=== PATIENT | male | born 1970 | race Caucasian/White ===

== ENCOUNTER 2021-07-16 13:39 | Emergency (ER) | payer OTHER ==
[~2021-07-16] VITALS: Ht 188 cm; Wt 99.8 kg
[2021-07-16] MEDS ORDERED: AMLODIPINE BESYL5 MG PO (14:08)
[2021-07-16] MEDS ORDERED: ALLOPURINOL100 MG PO (14:08)
[2021-07-16] MEDS ORDERED: FLUOXETINE HCL10 MG PO (14:08)
[2021-07-16] MEDS ORDERED: SODIUM CHLORIDE 0.9% 1000ML 1,000 ML IV STA (14:16)
[2021-07-16] MEDS ORDERED: LORAZEPAM INJ 2 MG/ML VIAL IV ONE (14:30)
[2021-07-16] MEDS ORDERED: SODIUM CHLORIDE 0.9% 1000ML 1,000 ML ONE (14:35)
[2021-07-16] MEDS ORDERED: LORAZEPAM INJ 2 MG/ML VIAL ONE (14:35)
[2021-07-16] MEDS ORDERED: SODIUM CHLORIDE 0.9% 100 ML ONE (14:35)
[2021-07-16] MEDS ORDERED: CLONAZEPAM0.5 MG PO (16:14)
== END 2021-07-16 16:10 | disposition home or self-care (01) ==
LOC: FSED 13:47
DX: R42 Dizziness and giddiness (principal); I10 Essential (primary) hypertension; F41.9 Anxiety disorder, unspecified; Z85.47 Personal history of malignant neoplasm of testis
CPT/HCPCS: 70450; 71045; 80053; 84484; 85025; 93005; 99284; C9113; J2060; J7030; J7050